=== PATIENT | female | born 1955 ===

== ENCOUNTER 2019-11-04 10:08 | Emergency (ER) | payer OTHER ==
[~2019-11-04] VITALS: Ht 162.6 cm; Wt 81.2 kg
[2019-11-04] MEDS ORDERED: OSTERA TABLET1 EACH PO (10:28)
[2019-11-04] MEDS ORDERED: ASPIR 8181 MG PO (10:28)
== END 2019-11-04 12:55 | disposition home or self-care (01) ==
LOC: ER 10:08
DX: G51.0 Bell's palsy (principal)